=== PATIENT | female | born 1985 | race Caucasian/White ===

== ENCOUNTER 2016-11-28 06:46 | Emergency (ER) | payer SELFPAY ==
[~2016-11-28] VITALS: Ht 162.6 cm; Wt 76.1 kg
[~2016-11-28 06:46] MED LIST: FRRS300 PO; MTRUNK PO; PRCUNK PO; PRENTAB26 PO
[2016-11-28 06:57] VITALS: TEMP 36.7; Ht 162.6 cm; Wt 76.1 kg
[2016-11-28] MEDS ORDERED: IBUPROFEN 600 MG TAB PO STA (07:07)
--- NOTE | 2016-11-28 08:06 | DIAGNOSTIC IMAGING REPORT ---
RIGHT ANKLE 3 VIEWS CLINICAL HISTORY: Right ankle injury. FINDINGS: 3 views of the right ankle are obtained. No prior studies are available for comparison at the time of dictation. The skeletal structures are well mineralized. No fracture is seen. The ankle mortise is intact. There is no large joint effusion. The overlying soft tissues are within normal limits. IMPRESSION: There is no radiographic evidence of right ankle fracture. Electronically signed by: Jah Melton M.D. 11/28/2016 8:05 AM Dictated Date/Time: 11/28/2016 8:04 AM
--- NOTE | 2016-11-28 08:12 | EMERGENCY ROOM VISIT NOTE ---
ED Visit Note First contact with patient: 07:06 CHIEF COMPLAINT: Right Ankle injury HISTORY OF PRESENT ILLNESS: This 30-year-old female patient sustained an injury to the right ankle with a twisting, inversion motion last evening at 6: 30 PM when she tripped. Complains of swelling and pain. The patient is able to bear weight on the foot but with pain. Constant pain, moderate to severe, worse with movement, weight bearing, and the dependent position. No knee pain. The patient denies any prior injury to her ankle. REVIEW OF SYSTEMS: 6 system review was performed and was negative unless stated otherwise in history of present illness. PMH: No prior significant ankle injury. The patient is generally healthy with no chronic medical problems or a history of major surgery. SOCIAL HISTORY: Patient admits to tobacco use but denies any alcohol use. PHYSICAL EXAM: Vital Signs: Were reviewed Reviewed Nurse's notes. GEN.: 30-year -old white female appears in no acute distress. MENTAL STATUS: Alert, oriented , and cooperative. RIGHT ANKLE: The ankle is slightly swollen and tender over the lateral aspect but the skin is intact and there is no ligamentous instability. There is no deformity. The foot and toes are warm and well- perfused. Sensation to pain and light touch is intact. EMERGENCY DEPARTMENT COURSE: The patient was evaluated. The patient was given Motrin 600 mg by mouth for pain. X-ray of the right ankle was ordered and interpreted by the radiologist and myself. DIAGNOSTICS:RIGHT ANKLE 3 VIEWS CLINICAL HISTORY: Right ankle injury. FINDINGS: 3 views of the right ankle are obtained. No prior studies are available for comparison at the time of dictation. The skeletal structures are well mineralized. No fracture is seen. The ankle mortise is intact. There is no large joint effusion. The overlying soft tissues are within normal limits. IMPRESSION: There is no radiographic evidence of right ankle fracture. Electronically signed by: Jah Melton M.D. 11/28/2016 8:05 AM The patient was informed of the findings. The patient was placed in a gel splint and given crutches. The patient was discharged home in stable condition. DIAGNOSIS: Sprained right Ankle DISCHARGE INSTRUCTIONS: Ice and elevation over the next 24 hours. Ibuprofen, 600 mg every 6 hours if needed for pain. Use crutches and wear gel splint until weightbearing is tolerable. If there is no improvement in 3-5 days followup with your doctor or an orthopedic surgeon . Current/Historical Medications No Active Prescriptions or Reported Meds Allergies Coded Allergies: No Known Allergies (Verified , 11/28/16) Vital Signs Date Time Temp Pulse Resp B/P (MAP) Pulse Ox O2 Delivery O2 Flow Rate FiO2 11/28/16 06:57 36.7 90 20 136/84 97 Room Air Medications Administered Medications (Trade) Dose Ordered Sig/Nicolasa Route Start Time Stop Time Status Last Admin Dose Admin Ibuprofen (Motrin Tab) 600 mg NOW STAT PO 11/28/16 07:07 11/28/16 07:08 DC 11/28/16 07:36 600 MG Departure Information Prescriptions No Active Prescriptions or Reported Meds Referrals No Doctor, Assigned (PCP) Patient Instructions [facility]
[2016-11-28 09:05] VITALS: BP 130/65; PULSE 65; O2SAT 96
== END 2016-11-28 09:06 | disposition home or self-care (01) ==
LOC: C.EDB 06:47 → C.EDA 09:06
DX: S93.401A Sprain of unspecified ligament of right ankle, initial encounter (principal); X50.9XXA Other and unspecified overexertion or strenuous movements or postures, initial encounter; F17.200 Nicotine dependence, unspecified, uncomplicated